=== PATIENT | female | born 1985 | race Two or more races ===

== ENCOUNTER 2021-03-11 00:29 | Emergency (ER) | payer OTHER ==
[~2021-03-11] VITALS: Ht 165.1 cm; Wt 55.5 kg
[2021-03-11 00:45] VITALS: BP 129/80
--- NOTE | 2021-03-11 01:18 | PHYS DOC ---
General Adult EDM: Chief Complaint: ABDOMINAL PAIN HPI: HPI: 35-year-old female presents after being woken up from sleep with tachycardia and a feeling of concern. The patient has been worrying about some abdominal pain that she had a few days ago. It was left lower quadrant. The patient has had reduced bowel movement since that time. She has been searching things on Google and was concerned by the results including bowel obstruction. She had a bowel movement yesterday. She has seen her primary physician in urgent care who both told her she might be having panic attacks. Patient states that she has never had panic attacks before. She does not think she should have a panic attack while she is asleep and that it would wake her up. Patient denies significant snoring. She has no history of cardiac problems or other significant medical problems. She drinks alcohol on occasion. She denies any drug, supplement, or restrictive diet use. Denies fever or chills. Review of Systems: Review of Systems: Constitutional: Denies fever or chills Eyes: Denies change in visual acuity HENT: Denies nasal congestion or sore throat Respiratory: Denies cough or shortness of breath Cardiovascular: Denies chest pain or edema. Tachycardia. GI: Denies abdominal pain, nausea, vomiting, bloody stools or diarrhea : Denies dysuria Musculoskeletal: Denies back pain or joint pain Integument: Denies rash Neurologic: Denies headache, focal weakness or sensory changes Endocrine: Denies polyuria or polydipsia Lymphatic: Denies swollen glands Psychiatric: anxiety Physical Exam: PE: Constitutional: Well developed, well nourished, no acute distress, non-toxic appearance. [] HENT: Normocephalic, atraumatic, bilateral external ears normal, oropharynx moist, no oral exudates, nose normal. [] Eyes: PERRLA, EOMI, conjunctiva normal, no discharge. [] Neck: Normal range of motion, no tenderness, supple, no stridor. [] Cardiovascular:Heart rate regular rhythm, no murmur [] Lungs & Thorax: Bilateral breath sounds clear to auscultation [] Abdomen: Bowel sounds normal, soft, no tenderness, no masses, no pulsatile masses. [] Skin: Warm, dry, no erythema, no rash. [] Back: No tenderness, no CVA tenderness. [] Extremities: No tenderness, no cyanosis, no clubbing, ROM intact, no edema. [] Neurologic: Alert and oriented X 3, normal motor function, normal sensory function, no focal deficits noted. [] Psychologic: Affect normal, judgement normal, mood anxious. [] EKG: EKG: [] Radiology/Procedures: Radiology/Procedures: [] Impressions: Supine and upright views of the abdomen were performed. History: Abdominal pain, constipation Comparison: None. Findings: A nonobstructive bowel gas pattern is present. There is a moderate to large amount of colorectal stool burden with air noted in the rectum. No pathologic air-fluid levels, no supine evidence of free air, or bowel dilation. No pathologic calcification. IUD is noted. Osseous structures normal. Lung bases are not visualized. Impression: Nonobstructive bowel gas pattern with large colorectal stool burden consistent with constipation. Electronically signed by: Montez Alvarez DO (03/11/2021 1:46 AM) [facility] DICTATED AND SIGNED BY: MONTEZ ALVAREZ DO DATE: 03/11/21144 CC: LEILA CONN DO; PCP,UNKNOWN ~MTH0 0 Heart Score: C/O Chest Pain: N/A Risk Factors: Risk Factors: DM, Current or recent (<one month) smoker, HTN, HLP, family history of CAD, obesity. Risk Scores: Score 0 - 3: 2.5% MACE over next 6 weeks - Discharge Home Score 4 - 6: 20.3% MACE over next 6 weeks - Admit for Clinical Observation Score 7 - 10: 72.7% MACE over next 6 weeks - Early Invasive Strategies Course & Med Decision Making: Course & Med Decision Making Pertinent Labs and Imaging studies reviewed. (See chart for details) The patient's KUB is significant for large stool burden and constipation. I have advised magnesium citrate bowel cleanout. As for her tachycardia, this could be anxiety. I have told her that if she continues to have these episodes, she could discuss an event monitor with her primary care physician. Did see no evidence of arrhythmia in the ER. She is stable for discharge at this time. [] Dragon Disclaimer: Dragon Disclaimer: This electronic medical record was generated, in whole or in part, using a voice recognition dictation system. Departure Departure: Impression: Primary Impression: Constipation by delayed colonic transit Additional Impression: Anxiety about health Disposition: 01 HOME / SELF CARE / HOMELESS Condition: STABLE Referrals: PCP,UNKNOWN (PCP) Patient Instructions: Anxiety and Panic Attacks, [id number], Constipation, Adult, [id number] Additional Instructions: You should drink 1 bottle of magnesium citrate to help with your constipation. You should also increase your water intake. LEILA CONN DO Mar 11, 2021 01:18
--- NOTE | 2021-03-11 01:49 | RAD ---
Supine and upright views of the abdomen were performed. History: Abdominal pain, constipation Comparison: None. Findings: A nonobstructive bowel gas pattern is present. There is a moderate to large amount of color ectal stool burden with air noted in the rectum. No pathologic air-fluid levels, no supine evidence o f free air, or bowel dilation. No pathologic calcification. IUD is noted. Osseous structures normal. Lung bases are not visualized. Impression: Nonobstructive bowel gas pattern with large colorectal stool burden consistent with const ipation. Electronically signed by: Montez Ly DO (03/11/2021 1:46 AM) [facility]
== END 2021-03-11 02:20 | disposition home or self-care (01) ==
LOC: ER 00:29
DX: K59.01 Slow transit constipation (principal); F41.9 Anxiety disorder, unspecified
CPT/HCPCS: 74018; 99283